=== PATIENT | male | born 1960 | race Caucasian/White ===

== ENCOUNTER 2021-05-27 05:27 | Day surgery (SDC) | payer OTHER ==
[~2021-05-27] VITALS: Ht 167.6 cm; Wt 71.3 kg
[~2021-05-27 05:27] MED LIST: ATEN-72 PO; FLUT16H NASAL; MONT-35 PO; OMEP20 PO; SIMV-260 PO
[2021-05-27] MEDS ORDERED: LIDOCAINE 4% 50 ML SOLUTION TP ONE (05:28)
[2021-05-27] MEDS ORDERED: LIDOCAINE 2% 30 ML JELLY TP ONE (05:28)
[2021-05-27] MEDS ORDERED: BENZOCAINE 20% 50 MCG/SPRAY 57 GM TP ONE (05:28)
[2021-05-27 06:22] LABS: COVID AG,FIA SOURCE NASOPHARYNGEAL
[2021-05-27] MEDS ORDERED: SODIUM CHLORIDE 0.9% 1,000 ML ONE (07:07)
[2021-05-27] MEDS ORDERED: MIDAZOLAM HCL 2 MG/2 ML VIAL ONE (07:15)
[2021-05-27] MEDS ORDERED: FentaNYL CITRATE PF 100 MCG/2 ML VIAL ONE (07:16)
[2021-05-27] MEDS ORDERED: MIDAZOLAM HCL 5 MG/ML VIAL ONE (07:20)
[2021-05-27] MEDS ORDERED: ATEN-73 PO (07:35)
[2021-05-27] MEDS ORDERED: SODIUM CHLORIDE 0.9% 1,000 ML IV ONE (07:45)
[2021-05-27] MEDS ORDERED: MethylPREDNISolone SOD SUCC 125 MG/2 ML VIAL ONE (08:44)
[2021-05-27] MEDS ORDERED: MethylPREDNISolone SOD SUCC 125 MG/2 ML VIAL IVP ONE (08:45)
[2021-05-27] MEDS ORDERED: OXYGEN THERAPY IH SCH (20:00)
== END 2021-05-27 10:05 | disposition home or self-care (01) ==
LOC: SURGERY 05:27
PROVIDERS: ATTEND Internal Medicine Critical Care Medicine
DX: J38.4 Edema of larynx (principal); B37.0 Candidal stomatitis; Z79.899 Other long term (current) drug therapy
CPT/HCPCS: 31623; 31624; 71045; 87015; 87070; 87101; 87206; 87220; 87426; 88184; 88185; C9803; J2250; J2930; J3010; J7030; 88112; 88312; Z7610